=== PATIENT | male | born 1935 | race Caucasian/White ===

== ENCOUNTER → 2021-08-05 | Outpatient (CLI) | payer MEDICARE, BC | LOC: KOH-I 08:25 | DX: M79.89 Other specified soft tissue disorders (principal); R60.9 Edema, unspecified | CPT/HCPCS: 71046; 93971 ==

== ENCOUNTER → 2021-10-14 | Outpatient (CLI) | payer MEDICARE, BC | LOC: KOH-I 16:02 | DX: M25.472 Effusion, left ankle (principal); M79.89 Other specified soft tissue disorders | CPT/HCPCS: 73610; 73630 ==

== ENCOUNTER → 2021-11-30 | Outpatient (CLI) | payer MEDICARE, BC | LOC: HEART 5 10:58 | DX: I87.2 Venous insufficiency (chronic) (peripheral) (principal); R60.0 Localized edema | CPT/HCPCS: 93970 ==

== ENCOUNTER → 2022-02-08 | Outpatient (CLI) | payer MEDICARE, BC | LOC: EXRD 02-04 09:30 → KOH-I 08:37 | DX: I71.4 Abdominal aortic aneurysm, without rupture (principal) | CPT/HCPCS: 93979 ==

== ENCOUNTER 2022-03-13 13:48 | Inpatient (IN) | payer MEDICARE, BC ==
[~2022-03-13] VITALS: Ht 177.8 cm; Wt 77.1 kg
[2022-03-13 15:08] LABS: HEMOGLOBIN 12.9 gm/dl (14.0-17.5); RED BLOOD COUNT 4.23 M/UL (4.20-5.50); WHITE BLOOD COUNT 6.1 K/UL (4.5-11.0)
[2022-03-13 15:27] LABS: BUN/CREATININE RATIO 23 (0-10)
[2022-03-14 03:26] LABS: HEMOGLOBIN 12.5 gm/dl (14.0-17.5); RED BLOOD COUNT 4.21 M/UL (4.20-5.50)
[2022-03-14 03:30] LABS: WHITE BLOOD COUNT 4.5 K/UL (4.5-11.0)
[2022-03-14 03:55] LABS: BUN/CREATININE RATIO 22 (0-10)
[2022-03-14] MEDS ORDERED: AMLODIPINE BES2.5 MG PO (10:21)
[2022-03-14] MEDS ORDERED: PRAVASTATIN SOD40 MG PO (10:21)
[2022-03-14] MEDS ORDERED: FLOMAX 0.4 MG0.4 MG PO (10:21)
[2022-03-14] MEDS ORDERED: OXYBUTYNIN CHLOR5 MG PO (10:22)
[2022-03-14] MEDS ORDERED: CEPHALEXIN500 MG PO (10:22)
[2022-03-15 02:35] LABS: HEMOGLOBIN 13.6 gm/dl (14.0-17.5); RED BLOOD COUNT 4.56 M/UL (4.20-5.50)
[2022-03-15 03:03] LABS: BUN/CREATININE RATIO 22 (0-10)
[2022-03-16 07:01] LABS: BUN/CREATININE RATIO 16 (0-10)
[2022-03-17 06:41] LABS: BUN/CREATININE RATIO 19 (0-10)
== END 2022-03-17 15:26 | disposition home health service (06) | DRG 698 ==
LOC: ER1 13:48 → CDU 19:27 → M/S 19:27
PROVIDERS: Physician Assistant Medical; ADMIT Internal Medicine
DX: T83.518A Infection and inflammatory reaction due to other urinary catheter, initial encounter (principal); G93.41 Metabolic encephalopathy; N30.00 Acute cystitis without hematuria; I71.4 Abdominal aortic aneurysm, without rupture; I10 Essential (primary) hypertension; N40.1 Benign prostatic hyperplasia with lower urinary tract symptoms; R31.9 Hematuria, unspecified; D69.6 Thrombocytopenia, unspecified; D64.9 Anemia, unspecified; R33.8 Other retention of urine; F03.90 Unspecified dementia, unspecified severity, without behavioral disturbance, psychotic disturbance, mood disturbance, and anxiety; Z87.442 Personal history of urinary calculi; Z87.891 Personal history of nicotine dependence; Z79.899 Other long term (current) drug therapy; Y84.6 Urinary catheterization as the cause of abnormal reaction of the patient, or of later complication, without mention of misadventure at the time of the procedure
CPT/HCPCS: 0240U; 36415; 51702; 70450; 71045; 80048; 80053; 80202; 81001; 82140; 82550; 82553; 83605; 83735; 84132; 84484; 85025; 85027; 87040; 87086; 93005; 96374; 97116; 97161; 99285; J0692; J0696; J2543; J3370; J7070; Q9967

== ENCOUNTER 2022-03-20 03:43 | Emergency (ER) | payer MEDICARE, BC ==
[~2022-03-20 03:43] MED LIST: AMLODIPINE BES2.5 MG PO; CEPHALEXIN500 MG PO; FLOMAX 0.4 MG0.4 MG PO; OXYBUTYNIN CHLOR5 MG PO; PRAVASTATIN SOD40 MG PO
== END 2022-03-20 05:40 | disposition home or self-care (01) ==
LOC: ER1 03:43
DX: N40.1 Benign prostatic hyperplasia with lower urinary tract symptoms (principal); R33.8 Other retention of urine; I10 Essential (primary) hypertension
CPT/HCPCS: 51702; 51798; 81001; 87086; 99283

== ENCOUNTER 2022-04-22 08:58 | Emergency (ER) | payer MEDICARE, BC ==
[~2022-04-22 08:58] MED LIST changes: +OMNICEF 300 MG300 MG PO
== END 2022-04-22 10:26 | disposition home or self-care (01) ==
LOC: ER1 08:58
DX: T83.038A Leakage of other urinary catheter, initial encounter (principal); I10 Essential (primary) hypertension; E78.5 Hyperlipidemia, unspecified
CPT/HCPCS: 51702; 99283

== ENCOUNTER 2022-04-22 14:02 | Emergency (ER) | payer MEDICARE, BC | END 2022-04-22 15:51 | disposition home or self-care (01) | LOC: ER1 14:02 | DX: T83.9XXA Unspecified complication of genitourinary prosthetic device, implant and graft, initial encounter (principal); I10 Essential (primary) hypertension; E78.5 Hyperlipidemia, unspecified; Z85.038 Personal history of other malignant neoplasm of large intestine | CPT/HCPCS: 99283 ==